=== PATIENT | female | born 1980 | race Caucasian/White ===

== ENCOUNTER 2023-06-04 06:09 | Day surgery (SDC) | payer BC, OTHER ==
[~2023-06-04] VITALS: Ht 154.9 cm; Wt 57.7 kg
[~2023-06-04 06:09] MED LIST: BUPR300T92 PO; MULT1TAB8 PO; TERB250T91 PO; ceFAZolin SOD 2 GM in IV 1 EA IV ONE
[2023-06-04] MEDS ORDERED: LR 1,000 ML IV SCH ×2 (06:25→08:50)
[2023-06-04] MEDS ORDERED: GENTAMICIN SULF 80MG/2ML VIAL As Ordered ONE (07:20)
[2023-06-04] MEDS ORDERED: ROCURONIUM BROMIDE 50MG/5ML VIAL As Ordered ONE (07:28)
[2023-06-04] MEDS ORDERED: ONDANSETRON 4MG 2ML VIAL As Ordered ONE (07:28)
[2023-06-04] MEDS ORDERED: LIDOCAINE 2% 100MG/5ML SDV (FOR ANES.) As Ordered ONE (07:28)
[2023-06-04] MEDS ORDERED: propofoL 200 MG/20 ML VIAL As Ordered ONE (07:28)
[2023-06-04] MEDS ORDERED: fentaNYL 250 MCG/5 ML INJECTION As Ordered ONE (07:29)
[2023-06-04] MEDS ORDERED: MIDAZOLAM INJ 2MG/2ML VIAL As Ordered ONE (07:29)
[2023-06-04] MEDS ORDERED: ACETAMINOPHEN 1000MG 100ML IV BAG As Ordered ONE (08:33)
[2023-06-04] MEDS ORDERED: SUGAMMADEX SODIUM 500 MG/5 ML VIAL (BRIDION) As Ordered ONE (08:33)
[2023-06-04] MEDS ORDERED: HYDROmorphone HCL 2MG/ML 1ML VIAL As Ordered ONE (08:36)
[2023-06-04] MEDS ORDERED: oxyCODONE 5MG TAB PO PRN (08:50)
[2023-06-04] MEDS ORDERED: ONDANSETRON 4MG 2ML VIAL IV PRN (08:50)
[2023-06-04] MEDS ORDERED: HYDROMORPHONE HCL 0.5 MG/ 0.5 ML SYRINGE IV PRN (08:50)
[2023-06-04] MEDS ORDERED: fentaNYL 100 MCG/2 ML INJECTION IV PRN (08:50)
[2023-06-04] MEDS ORDERED: MEPERIDINE 50 MG/ML 1ML VIAL As Ordered ONE (09:43)
[2023-06-04 12:00] VITALS: BP 135/76; TEMP 97.1; O2SAT 99
== END 2023-06-04 12:26 | disposition home or self-care (01) ==
LOC: M SDC 06:09
PROVIDERS: ATTEND Plastic Surgery Surgery of the Hand
DX: L91.0 Hypertrophic scar (principal); Z85.9 Personal history of malignant neoplasm, unspecified; Z88.8 Allergy status to other drugs, medicaments and biological substances; Z79.899 Other long term (current) drug therapy
CPT/HCPCS: 11406; 12034; 81025; 88302; C9290; J0131; J0665; J0690; J1100; J1170; J1580; J2175; J2250; J2405; J3010

== ENCOUNTER → 2023-06-19 | Outpatient (REF) | payer BC, OTHER ==
[~2023-06-19] MED LIST changes: -ceFAZolin SOD 2 GM in IV 1 EA IV ONE
== END ==
LOC: M LAB REF 16:23
PROVIDERS: ATTEND Physician Assistant
DX: Z48.814 Encounter for surgical aftercare following surgery on the teeth or oral cavity (principal); L91.0 Hypertrophic scar